=== PATIENT | female | born 1965 | race American Indian/Alaskan Native ===

== ENCOUNTER 2016-12-15 11:20 | Inpatient (IN) | payer OTHER ==
--- NOTE | 2016-12-15 11:15 | History and Physical Report ---
History of Present Illness Date of examination: 12/15/16 Chief complaint: Symptomatic fibroid uterus History of present illness: Pt is a 51yo BF LMP 12/04/16 presents for surgical evaluation and treatment of her fibroid uterus. She has had a uterine artery embolization several years ago followed by placement of the Mirena IUD in an attempt to control her bleeding from the fibroids, but now the bleeding is continuous and her uterus feels heavy due to an increase in size. Pelvic u/s showed an enlarged uterus 15.08 x 9.15 x 7.19cm with several fibroids and a displaced IUD within the myometrium. Both ovaries were normal. She therefore presents for a Robotic Assisted Total Hysterectomy with bilateral salpingectomy. She desires ovarian conservation. Past History Past Medical History: heart disease (Irregular heart beat 2 years ago), hypertension Past Surgical History: cholecystectomy, other (Uterine artery embolization; cardiac catherization) APPLIANCE FIXER History: fibroids Social history: no significant social history, Medications and Allergies Allergies Allergy/AdvReac Type Severity Reaction Status Date / Time No Known Allergies Allergy Verified 12/12/16 11:21 Home Medications Medication Instructions Recorded Confirmed Last Taken Type Atenolol [Atenolol] 50 mg PO DAILY 09/04/14 12/15/16 12/15/16 07:30 History Active Meds: Active Medications Celecoxib (Celebrex) 200 mg PO PREOP NR Stop: 12/15/16 23:59 Famotidine (Pepcid) 20 mg PO PREOP NR Stop: 12/15/16 23:59 Fentanyl (Sublimaze) 100 mcg IV ONCE NR Stop: 12/15/16 18:00 Gabapentin (Neurontin) 600 mg PO PREOP NR Stop: 12/15/16 18:00 Sodium Chloride (Nacl 0.9% 1000 Ml) 1,000 mls @ 100 mls/hr IV [facility] Midazolam HCl (Versed) 2 mg IV PREOP NR Stop: 12/15/16 23:59 Scopolamine (Transderm-Scop) 1 each TD PREOP NR Stop: 12/18/16 09:59 Review of Systems All systems: negative - Physical Exam Breasts: Positive: deferred Cardiovascular: Regular rate Lungs: Positive: Clear to auscultation Abdomen: Positive: normal appearance Genitourinary (Female): Positive: normal external genitalia Vagina: Positive: normal moisture Uterus: Positive: enlarged (14-16 weeks size) Extremities: Positive: normal Results All other labs normal. Ultrasound: report reviewed Assessment and Plan - Patient Problems (1) Fibroid, uterine Diagnosis Date: 12/15/16 Current Visit: Yes Status: Chronic Qualifiers: Uterine leiomyoma location: intramural Qualified Code(s): D25.1 - Intramural leiomyoma of uterus Plan to address problem: A: Symptomatic fibroid uterus P: Will proceed with a Robotic Assisted Total Hysterectomy with Bilateral Salpingectomy. Pt desires ovarian conservation
[~2016-12-15 11:20] MED LIST: NACL 0.9% 1000 ML 1,000 ML IV SCH; NEURONTIN PO NR; PEPCID PO NR; SUBLIMAZE IV NR; TRANSDERM-SCOP TD NR; VERSED IV NR; XYLOCAINE MPF 2% ONE; ZEMURON IV ONE
[2016-12-15] MEDS ORDERED: ANCEF/STERILE WATER 2 GM/20 ML 20 ML IV SCH (12:00)
--- NOTE | 2016-12-15 12:00 | Anesthesia Consultation ---
Anesthesia Consult and Med Hx Date of service: 12/15/16 - Airway Anesthetic Teeth Evaluation: Good ROM Head & Neck: Adequate Mental/Hyoid Distance: Adequate Mallampati Class: Class II Intubation Access Assessment: Probably Good - Pulmonary Exam CTA: Yes - Cardiac Exam Cardiac Exam: RRR - Pre-Operative Health Status ASA Pre-Surgery Classification: ASA2 Proposed Anesthetic Plan: General Nerve Block: TAP - Pulmonary Hx Smoking: No Hx Sleep Apnea: No - Cardiovascular System Hx Hypertension: Yes ("borderline" x 2 yrs) - Central Nervous System Hx Psychiatric Problems: No - Hematic Hx Anemia: Yes (past hx) - Other Systems Hx Alcohol Use: Yes (occas) Hx Cancer: No
--- NOTE | 2016-12-15 12:00 | Anesthesia Day of Surgery ---
Anesthesia Day of Surgery - Day of Surgery Patient Examined: Yes Patient H&P Reviewed: Yes Patient is NPO: Yes Beta Blockers: Yes
[2016-12-15] MEDS ORDERED: XYLOCAINE 1% 20 mL ONE (12:15)
[2016-12-15] MEDS ORDERED: DECADRON ONE ×2 (12:15→15:19)
[2016-12-15] MEDS ORDERED: MARCAINE-EPI/PF 0.5%-1:200,000 INFILTRATI ONE (12:15)
[2016-12-15] MEDS ORDERED: MARCAINE-EPI 0.5%-1:200,000 INFILTRATI ONE (12:15)
[2016-12-15] MEDS ORDERED: DIPRIVAN 10 MG/ML IV ONE (12:41)
[2016-12-15] MEDS ORDERED: DILAUDID ONE ×2 (12:42→16:55)
--- NOTE | 2016-12-15 12:51 | Admit Criteria Form ---
Admission Criteria Documentation: AMBULATORY SURGERY EXCEPTION CRITERIA Ambulatory Surgery Exception Criteria ( Place 'X' for any and all applicable criteria): Surgery or procedure performed on ambulatory basis may require inpatient stay for[A] ANY ONE of the following(1)(2)(3)(4)(5)(6)(7)(8)(9): X[X] I. A preoperative situation, condition, or finding that warrants inpatient stay as indicated by ANY ONE of the following: [] a) Inpatient care needed because of severity of a disease or condition rather than the surgery (eg, severe cardiac or respiratory disease, severe infection) (15) (16 ) (17) (18) [] b) Emergent procedure (eg, angioplasty for acute ischemia)(19) [X] c) Complex surgical approach or situation as indicated by ANY ONE of the following(3): [] i) Open approach needed instead of usual endoscopic, transcatheter, or other less invasive procedure [] ii) Difficult approach because of previous operation [] iii) Airway monitoring required after open neck procedures(20)(21) [X] iv) Large mass requiring unusually extensive dissection [] v) Additional complicating feature requiring inpatient care (eg, drain management)(22(23): [] d) Major surgery in a pt with high anesthetic risk as indicated by ANY ONE of the following (2)(3)(5)(7)(8): [] i) ASA risk class III or higher (severe systemic disease impairing function) [D] [] ii) Advanced age (eg, older than 85 years)(14)(24) [] iii) Symptomatic heart failure(25) [] iv) Symptomatic asthma or COPD(8)(21) [] v) Morbid obesity with hemodynamic or respiratory problems(20)( 21)(26)(27) [] vi) Obstructive sleep apnea(20)(21) [] vii) Former premature infants who are younger than 60 weeks [] viii) High risk for severe postoperative abnormalities (eg, severe postoperative hypocalcemia after parathyroidectomy for severe hyperparathyroidism)(27)( 28) [] ix) Unstable angina(25) [] e) Drug-related risk requiring inpatient stay as indicated by ANY ONE of the following(5)(10)(14)(32)(33) [] i) Procedure requires discontinuing drugs or other therapy (eg , antiarrhythmic medication, antiseizure medication), which necessitates inpatient observation or treatment.(18)(31) [] ii) Major surgery and high risk drug use as indicated by ANY ONE of the following: [] 1) Active abuse of cocaine or similar drug [] 2) Monoamine oxidase inhibitor use [] 3) Other drug identified as posing risk [] f) Inadequate outpatient care situation as indicated by ANY ONE of the following(5)(10)(14)(32)(33) [] i) Patient lives remote from medical facility and procedure has urgent complication potential, and temporary nearby residence cannot be arranged [] ii) Patient will have postprocedure incapacitation and inadequate assistance at home, or alternative level of care cannot be arranged. [] iii) Patient will have long general anesthesia or procedure side effect resolution time, and competent person to stay with patient on first postoperative night at home or alternative level of care cannot be arranged. []iv) Other inadequate outpatient situation that cannot be handled by other means [] II. A perioperative event, condition, or finding that warrants inpatient stay as indicated by ANY ONE of the following (1)(2)(3): [] a) Inadequate physiologic recovery: cardiovascular, respiratory, or hemodynamic status not normal or near preoperative baseline(18) [] b) Hemodynamic instability [] c) Patient not alert with near normal or baseline mental status [] d) Temperature not normal or as expected and not appropriate for outpatient treatment of condition [] e) Ambulatory or appropriate activity level status not yet achieved post procedure [E](34)(35)(36) [] f) Operative site not appropriate (eg, unexpected or excessive drainage or bleeding) [] g) Postoperative effects not resolved or adequately managed (eg, significant pain or vomiting not appropriate for outpatient or next level of care)(10)(12) [] h) Complicating features requiring inpatient care as indicated by ANY ONE of the following(37): [] i) Severe complications of procedure (eg, bowel injury, airway compromise, vascular injury,severe hemorrhage) [] ii) Extensive (eg, dissection far beyond usual scope of procedure ) or prolonged (eg, 120 minutes beyond usual) surgery needed requiring inpatient postoperative care [] iii) Conversion to an open or complex procedure that requires inpatient care (eg, open vs laparoscopic cholecystectomy, abdominal vs vaginal hysterectomy)(38) [] iv) Comorbid condition or test result identified during or post procedure that requires inpatient care (7) [] v) Malignant hyperthermia(30) [] vi) Other complicating feature requiring inpatient care(22)(23) Inpatient stay may be needed until ALL of the following are present (1)(2)(3)(4) (5)(6)(10)(14)(33)(40): []a) Physiologic recovery: cardiovascular, respiratory, and hemodynamic status normal or near preoperative baseline []b) Hemodynamic stability []c) Patient alert, with near normal or baseline mental status []d) Temperature appropriate: patient afebrile or temperature appropriate for outpt treatment of condition []e) Activity level appropriate: ambulatory or appropriate activity level post procedure []f) Operative site appropriate as indicated by ALL of the following: []i) Site dry or with expected drainage []ii) Any blood noted is as expected for procedure. []g) Postoperative effects resolved or managed as indicated by ALL of the following: []i) Pain management appropriate for outpatient (or next level of) care(10) []ii) Minimal nausea and vomiting: if present, successfully treated with oral medication(12) []iii) Headache, dizziness, or drowsiness (if present) are mild. []h) Voiding status acceptable as indicated by ANY ONE of the following: []i) Voiding spontaneously []ii) No voiding but instructions given for follow-up in 6 to 8 hours []iii) Urinary catheter in place, and instructions given for follow-up []i) Complicating features requiring inpatient care manageable at a lower level of care(37) []j) Comorbid conditions manageable at a lower level of care(37) The original [facility] content created by [facility] has been revised. The portions of the content which have been revised are identified through the use of italic text or in bold, and [facility] has neither reviewed nor approved the modified material. All other unmodified content is copyright [facility]. Please see references footnoted in the original [facility] edition 2016 Admission Criteria Met: Yes
[2016-12-15] MEDS ORDERED: NEO SYNEPHRINE/NS Syringe(OR USE) IV ONE (13:21)
[2016-12-15] MEDS ORDERED: LOPRESSOR IV ONE (13:21)
[2016-12-15] MEDS ORDERED: NACL 0.9% 1000 ML 1,000 ML ONE ×2 (13:45→15:32)
[2016-12-15] MEDS ORDERED: NACL 0.9% IR ONE ×2 (14:25)
[2016-12-15] MEDS ORDERED: NEOSPORIN GU IR ONE (14:25)
[2016-12-15] MEDS ORDERED: ZOFRAN ONE (14:29)
[2016-12-15] MEDS ORDERED: TORADOL ONE (14:29)
[2016-12-15] MEDS ORDERED: ROBINUL ONE ×2 (14:29→15:22)
[2016-12-15] MEDS ORDERED: BLOXIVERZ ONE (14:29)
--- NOTE | 2016-12-15 15:48 | Operative Report ---
Operative Report Operative Report: Date of procedure: 12/15/2016 Pre-operative diagnosis: Symptomatic fibroid uterus Post-operative diagnosis: Same Procedure name(s): 1. Robotic-assisted total hysterectomy 2. Bilateral salpingectomy Surgeon: Fuentes Mehta MD Disk Recoater: Carla Vera SA Anesthesia: Edgar block followed by general endotracheal intubation by Dr. Caesar Figueroa EBL: 100 mL's Findings: A 14-16 week size multi-myomatous uterus with a large cervical fibroid. Normal tubes bilaterally. A cystic left ovary and normal right ovary. Procedure: After the patient's first correctly identified she was prepped and draped in the usual sterile fashion and placed in the dorsolithotomy position. The bladder was first catheterized using Brooks catheter and the speculum was placed in the vagina and the anterior lip of the cervix was grasped using a single-tooth tenaculum, and the medium Vesicare cup was placed. The tenaculum and speculum was then removed from the vagina and attention was then turned to the abdomen. The skin knife was used to make a small incision approximately 5 cm above the umbilicus through which a 12 mm trocar was placed under direct visualization. After adequate amount of abdominal insufflation visualization of the pelvic organs found the uterus to be enlarged with several fibroids, the tubes were found to be normal bilaterally. The left ovary was enlarged and cystic and the right ovary was normal. A right lateral incision was made through which a 5 mm trocar was placed under direct visualization. A right and left paramedian incision was made through which the 8 mm trochars were placed under direct visualization. The patient was then placed in steep Trendelenburg positioning and the robot was docked on the patient's left side. After all the robotic ports were connected and adequate functioning of the robotic arms were tested the surgeon then proceeded to the console to begin the hysterectomy. First the left round ligament was grasped, cauterized and cut, the left utero- ovarian ligaments were grasped, cauterized and cut, and the left fallopian tube also grasped, cauterized and cut along the mesosalpinx thus freeing the left ovary from the left uterine sidewall. The cystic left ovary was sized and drained of clear fluid. The same procedure was performed on the right. The right round ligament was grasped, cauterized and cut, the right utero-ovarian ligaments were grasped, cauterized and cut, and the right fallopian tube also grasped, cauterized and cut along the mesosalpinx thus freeing the right ovary from the right uterine sidewall. The bladder flap was taken down anteriorly and the uterine vessels were grasped, cauterized and cut bilaterally. The cardinal ligaments were sequentially grasped, cauterized and cut down to the level of the uterosacral ligaments. At this time the posterior colpotomy was performed over the Vcare cup, and the cervix was circumscribed beginning posteriorly and meeting anteriorly until the cervix was freed. The cervix and uterus was then removed through the vagina and sent to pathology. The vaginal cuff was then closed using 2-0 Vloc suture in a running fashion. Irrigation was then performed and after good hemostasis was achieved the procedure was considered complete. The Tisseel sealant was then sprayed across the vaginal cuff site, and after excellent hemostasis was assured Interceed was placed across the vaginal cuff site. All instruments were then removed from the abdominal cavity. And each incision was closed using 0 Vicryl suture in a [id number] configuration on the fascia followed by 4-0 Monocryl suture in a subcuticular fashion on the skin. Each incision was also infiltrated using 0.5% Marcaine solution. The vaginal pack was removed. The patient tolerated the procedure well and was transported to the recovery room in stable condition.
[2016-12-15] MEDS ORDERED: ZOFRAN IV PRN (15:49)
[2016-12-15] MEDS ORDERED: DULCOLAX PR PRN (15:49)
[2016-12-15] MEDS ORDERED: NARCAN 0.4 MG/1 ML IV PRN (15:49)
[2016-12-15] MEDS ORDERED: MILK OF MAGNESIA PO PRN (15:49)
[2016-12-15] MEDS ORDERED: TYLENOL PO PRN (15:49)
[2016-12-15] MEDS ORDERED: PERCOCET 5/325 PO PRN (15:49)
[2016-12-15] MEDS ORDERED: NORCO 5/325 PO PRN (15:49)
[2016-12-15] MEDS ORDERED: D5LR 1,000 ML IV SCH (16:00)
[2016-12-15] MEDS ORDERED: APRESOLINE ONE ×2 (16:20→17:19)
[2016-12-15] MEDS ORDERED: REGLAN IV PRN ×2 (16:47→17:30)
[2016-12-15] MEDS: DILAUDID IV PRN ×2 (16:55→17:25)
[2016-12-15] MEDS ORDERED: APRESOLINE IV PRN (17:28)
[2016-12-15] MEDS: TORADOL IV SCH (20:39)
[2016-12-15] MEDS ORDERED: COLACE PO SCH (22:00)
[2016-12-15] MEDS: ANCEF/NS 1 GM/50 ML 50 ML IV SCH (22:00)
[2016-12-16] MEDS: TORADOL IV SCH ×2 (02:46→09:15)
[2016-12-16] MEDS: ANCEF/NS 1 GM/50 ML 50 ML IV SCH (05:56)
[2016-12-16 06:28] LABS: Hematocrit 39.1 % (30.3-42.9); Hemoglobin 12.6 gm/dl (10.1-14.3)
--- NOTE | 2016-12-16 11:05 | Progress Note ---
Assessment and Plan - Patient Problems (1) Fibroid, uterine Diagnosis Date: 12/15/16 Current Visit: Yes Status: Resolved Qualifiers: Uterine leiomyoma location: intramural Qualified Code(s): D25.1 - Intramural leiomyoma of uterus (2) Status post robot-assisted surgical procedure Diagnosis Date: 12/16/16 Current Visit: Yes Status: Acute Plan to address problem: A: S/P RATH with bilateral salpingectomy - POD #1 Doing well P: May go home today Subjective - Subjective Date of service: 12/16/16 Principal diagnosis: S/P RATH - POD #1 Interval history: Pt is s/p a Robotic Assisted Total Hysterectomy with bilateral salpingectomy and feeling well. She is tolerating a liquid diet without nausea or vomiting, ambulating and voiding without difficulty. Patient reports: appetite normal, voiding normally, pain well controlled, ambulating normally, no flatus Objective - Vital Signs Latest vital signs: Vital Signs Temp Pulse Pulse Pulse Resp BP BP 12/16/16 09:02 98.8 F 76 20 12/16/16 04:25 99.5 F 80 16 119/74 12/16/16 02:46 18 12/16/16 00:00 98 F 60 20 114/85 12/15/16 20:39 18 12/15/16 20:00 98.2 F 95 H 20 149/81 12/15/16 19:45 18 12/15/16 18:30 98.0 F 78 18 143/75 12/15/16 18:00 98.4 F 89 14 125/74 12/15/16 17:50 89 13 123/74 12/15/16 17:45 80 13 143/79 12/15/16 17:35 80 14 150/82 12/15/16 17:30 80 13 163/89 12/15/16 17:22 62 181/96 12/15/16 17:15 62 14 180/94 12/15/16 17:00 65 14 181/96 12/15/16 16:45 63 14 173/94 12/15/16 16:30 60 14 152/89 12/15/16 16:25 54 L 12 175/90 12/15/16 16:20 58 L 12 203/109 12/15/16 16:16 97.6 F 69 12 210/108 12/15/16 13:00 67 16 144/77 01/20/17 12:55 69 16 141/89 12/15/16 11:45 98.5 F 70 18 135/89 Pulse Ox 12/16/16 09:02 12/16/16 04:25 12/16/16 02:46 12/16/16 00:00 12/15/16 20:39 12/15/16 20:00 12/15/16 19:45 12/15/16 18:30 12/15/16 18:00 100 12/15/16 17:50 100 12/15/16 17:45 100 12/15/16 17:35 100 12/15/16 17:30 100 12/15/16 17:22 12/15/16 17:15 100 12/15/16 17:00 100 12/15/16 16:45 12/15/16 16:30 12/15/16 16:25 100 12/15/16 16:20 100 12/15/16 16:16 100 12/15/16 13:00 12/15/16 12:55 12/15/16 11:45 100 Intake and Output 12/15/16 12/16/16 12/16/16 22:59 06:59 14:59 Intake Total 1850 240 240 Output Total 2050 700 Balance -200 -460 240 Intake: IV 1850 D5lr 1,000 ml @ 125 mls/ 250 hr IV [facility] Rx#: [id number] Oral 240 240 Output: Urine 2050 700 Void 700 Other: Total, Intake Amount 240 240 Total, Output Amount 700 Voiding Method Indwelling Catheter Toilet Weight 76.204 kg - Exam Cardiovascular: Present: Regular rate Lungs: Present: Clear to auscultation Abdomen: Present: normal appearance, soft Extremities: Present: normal Incision: Present: normal, dry, intact - Labs Labs: Laboratory Tests 12/15/16 12/16/16 13:15 05:46 Hgb 12.6 Hct 39.1 Blood Type A NEGATIVE Antibody Screen Negative
--- NOTE | 2016-12-16 11:12 | Discharge Summary ---
Providers - Providers Date of Admission: 12/15/16 15:49 Date of discharge: 12/16/16 Attending physician: TRAE PEREA Primary care physician: JOSEPH OVERTON Hospitalization Reason for admission: other (Symptomatic fibroid uterus) Procedure: other (Robotic Assisted Total Hysterectomy with Bilateral salpingectomy) Incision: normal, dry, intact Other procedures: none complications: none Discharge diagnosis: other (S/P RATH) Hospital course: Pt is a 51yo BF LMP 12/04/16 who presented for surgical evaluation and treatment of her fibroid uterus. She had had a uterine artery embolization several years ago followed by placement of the Mirena IUD in an attempt to control her bleeding from the fibroids, but the bleeding has been continuous and her uterus feels heavy due to an increase in size. Pelvic u/s showed an enlarged uterus 15.08 x 9.15 x 7.19cm with several fibroids and a displaced IUD within the myometrium. Both ovaries were normal. She therefore underwent a Robotic Assisted Total Hysterectomy with bilateral salpingectomy, and tolerated the procedure well. Post operative course was unremarkable, and by POD #1 she was tolerating a liquid diet without nausea or vomiting, ambulating and voiding without difficulty. She was therefore discharged to home on POD #1 in stable condition. Condition at discharge: Good Disposition: DISCHARGED TO HOME OR SELFCARE - Discharge Diagnoses (1) Fibroid, uterine Status: Resolved Qualifiers: Uterine leiomyoma location: intramural Qualified Code(s): D25.1 - Intramural leiomyoma of uterus (2) Status post robot-assisted surgical procedure Status: Resolved Plan - Discharge Medications Prescriptions: HYDROcodone/APAP 5-325 [Haskell 5-325 mg TAB] 1 each PO Q6HR PRN #30 tablet PRN Reason: Pain, Moderate (4-6) Ibuprofen [Motrin] 800 mg PO Q8HR PRN #30 tablet PRN Reason: Moder Pain Unrelieved By Haskell - Provider Discharge Summary Activity: routine, no sex for 6 weeks, no heavy lifting 4 weeks, no strenuous exercise Diet: routine Instructions: routine Additional instructions: [] Smoking cessation referral if applicable(refer to patient education folder for contact #) [] Refer to [facility] Booklet Call your doctor immediately for: * Fever > 100.5 * Heavy vaginal bleeding ( >1 pad per hour) * Severe persistent headache * Shortness of breath * Reddened, hot, painful area to leg or breast * Drainage or odor from incision. * Keep incision clean and dry at all times and follow doctor's instructions regarding bathing/showering - Follow up plan Follow up: JOSEPH OVERTON MD [Primary Care Provider] - 7 Days TRAE PEREA MD [Staff Physician] - 14 Days
[2016-12-16 17:18] VITALS: BP 116/70
== END 2016-12-16 15:30 | disposition home or self-care (01) | DRG 743 ==
LOC: OR 11:20 → OB 15:49
PROVIDERS: ADMIT Obstetrics & Gynecology; ATTEND Obstetrics & Gynecology
PROC: 0UT94ZZ Resection of Uterus, Percutaneous Endoscopic Approach (ICD-10-PCS; principal; 2016-12-15)
PROC: 0UTC4ZZ Resection of Cervix, Percutaneous Endoscopic Approach (ICD-10-PCS; 2016-12-15)
PROC: 0UB74ZZ Excision of Bilateral Fallopian Tubes, Percutaneous Endoscopic Approach (ICD-10-PCS; 2016-12-15)
PROC: 8E0W4CZ Robotic Assisted Procedure of Trunk Region, Percutaneous Endoscopic Approach (ICD-10-PCS; 2016-12-15)
DX: D25.1 Intramural leiomyoma of uterus (principal); Z98.890 Other specified postprocedural states; I10 Essential (primary) hypertension; Z90.49 Acquired absence of other specified parts of digestive tract
CPT/HCPCS: 36415; 64450; 85014; 85018; 86850; 86900; 86901; 88307; A4217; C1765; C9250; J0360; J0690; J1100; J1170; J1885; J2250; J2370; J2405; J2704; J2710; J2765; J3010; J7030; J7121

== ENCOUNTER 2016-12-29 16:42 | Inpatient (IN) | payer OTHER ==
[2016-12-29 18:05] LABS: Hematocrit 31.3 % (30.3-42.9); Hemoglobin 9.9 gm/dl (10.1-14.3); Mean Corpuscular HGB Conc 32 % (30-34); Mean Corpuscular Volume 81 fl (79-97); Platelet Count 383 K/mm3 (140-440); Red Blood Count 3.84 M/mm3 (3.65-5.03); Red Cell Distribution Width 16.2 % (13.2-15.2); White Blood Count 19.8 K/mm3 (4.5-11.0)
[2016-12-29 18:08] LABS: Mean Corpuscular Hemoglobin 26 pg (28-32)
[2016-12-29 19:10] LABS: Blood Urea Nitrogen 9 mg/dL (7-17); Calcium 8.5 mg/dL (8.4-10.2); Carbon Dioxide 28 mmol/L (22-30); Chloride 96.2 mmol/L (98-107); Glucose 120 mg/dL (65-100); Potassium 3.6 mmol/L (3.6-5.0); Sodium 138 mmol/L (137-145)
[2016-12-29 19:16] LABS: Anion Gap 17 mmol/L
[2016-12-29] MEDS ORDERED: NACL 0.9% 1000 ML IV ONE (22:06)
[2016-12-29] MEDS ORDERED: NACL ONE (22:08)
--- NOTE | 2016-12-29 22:09 | Emergency Department Report ---
ED Female HPI - General Chief complaint: Urogenital-Female Stated complaint: ABD DISCOMFORT/VAG DISCHARGE POST SURGERY Time Seen by Provider: 12/29/16 21:51 Source: patient Mode of arrival: Ambulatory Limitations: No Limitations - History of Present Illness Initial comments: This is a pleasant 51-year-old female who reports vaginal discharge starting this afternoon. She is status post robotics hysterectomy due to fibroids. This was done on December 15. She reports having some dysuria symptoms starting Sunday. She called her physician and had Bactrim prescription called in. She states that she still having some dysuria discomfort. She actually had a wound check today with her surgeon. Just after leaving the office she noted feeling wet and noted she had a moderate amount of discharge from the vaginal region. This has persisted and fairly moderate amount. She reports if smelling quite foul as well. Patient denies any fevers she denies any abdominal pain as well reports a normal appetite. MD Complaint: vaginal discharge Onset/Timin -: Sudden, hour(s) Radiation: non-radiating Severity: mild Quality: dull Consistency: constant Improves with: none Worsens with: urination Are you Now?: No Associated Symptoms: vaginal discharge, dysuria. denies: vaginal bleeding, abdominal pain, headaches - Related Data Home Medications Medication Instructions Recorded Confirmed Last Taken Atenolol [Atenolol] 50 mg PO DAILY 09/04/14 12/15/16 12/15/16 07:30 Previous Rx's Medication Instructions Recorded Last Taken Type HYDROcodone/APAP 5-325 [[place] 1 each PO Q6HR PRN #30 tablet 12/16/16 Unknown Rx 5-325 mg TAB] Ibuprofen [Motrin] 800 mg PO Q8HR PRN #30 tablet 12/16/16 Unknown Rx Allergies Allergy/AdvReac Type Severity Reaction Status Date / Time No Known Allergies Allergy Verified 12/12/16 11:21 ED Review of Systems ROS: Stated complaint: ABD DISCOMFORT/VAG DISCHARGE POST SURGERY Other details as noted in HPI Constitutional: denies: chills, fever Eyes: denies: eye pain, eye discharge, vision change ENT: denies: ear pain, throat pain Respiratory: denies: cough, shortness of breath, wheezing Cardiovascular: denies: chest pain, palpitations Endocrine: no symptoms reported Gastrointestinal: denies: abdominal pain, nausea, diarrhea Genitourinary: urgency, dysuria, discharge Musculoskeletal: denies: back pain, joint swelling, arthralgia Skin: denies: rash, lesions Neurological: denies: headache, weakness, paresthesias Psychiatric: denies: anxiety, depression Hematological/Lymphatic: denies: easy bleeding, easy bruising ED Past Medical Hx - Past Medical History Previous Medical History?: Yes Hx Hypertension: Yes ("borderline" x 2 yrs) Hx Congestive Heart Failure: No Hx Diabetes: No Hx GERD: Yes Hx Asthma: No Hx COPD: No Hx HIV: No - Surgical History Past Surgical History?: Yes Hx Cholecystectomy: Yes Hx Breast Surgery: Yes (lt breast node removed) Additional Surgical History: hysterectomy - Social History Smoking Status: Never Smoker Substance Use Type: Alcohol - Medications Home Medications: Home Medications Medication Instructions Recorded Confirmed Last Taken Type Atenolol [Atenolol] 50 mg PO DAILY 09/04/14 12/15/16 12/15/16 07:30 History HYDROcodone/APAP 5-325 [[place] 1 each PO Q6HR PRN #30 tablet 12/16/16 Unknown Rx 5-325 mg TAB] Ibuprofen [Motrin] 800 mg PO Q8HR PRN #30 tablet 12/16/16 Unknown Rx ED Physical Exam - General Limitations: No Limitations General appearance: alert, in no apparent distress - Head Head exam: Present: atraumatic, normocephalic - Eye Eye exam: Present: normal appearance - ENT ENT exam: Present: mucous membranes moist - Neck Neck exam: Present: normal inspection - Respiratory Respiratory exam: Present: normal lung sounds bilaterally. Absent: respiratory distress - Cardiovascular Cardiovascular Exam: Present: regular rate, normal rhythm. Absent: systolic murmur, diastolic murmur, rubs, gallop - GI/Abdominal GI/Abdominal exam: Present: soft, normal bowel sounds - Speculum exam: Present: other (whitish yellowish semi-thick discharge noted a moderate amount in the vaginal region as well as in the vaginal vault. Cuff appears to be intact. An well-healed in general. No LOC no active fluid noted coming from the cuff region. There is a moderate amount of fluid in the vault in general though. No tenderness to palpation no fullness noted on bimanual examination.) - Extremities Exam Extremities exam: Present: normal inspection - Back Exam Back exam: Present: normal inspection - Neurological Exam Neurological exam: Present: alert, oriented X3 - Psychiatric Psychiatric exam: Present: normal affect, normal mood - Skin Skin exam: Present: warm, dry, intact, normal color. Absent: rash ED Course Vital Signs 12/29/16 17:00 Temperature 98.1 F Pulse Rate 102 H Respiratory 16 Rate Blood Pressure 124/82 O2 Sat by Pulse 100 Oximetry - Reevaluation(s) Reevaluation #1: 12/30/16 00:03 Patient given IV fluids due to the IV contrasted CT study. She is totally pain- free here and very comfortable. Urinalysis does demonstrate some significant pyuria. In addition CT study has some findings described and MDM. I did discuss with Dr. Mehta these findings. He will admit the patient for CT-guided I drainage. He will put in orders and informed of findings and plan. ED Medical Decision Making - Lab Data Result diagrams: 12/29/16 17:40 12/29/16 17:40 - Radiology Data Radiology results: report reviewed, image reviewed interpreted by me: Impression and CT demonstrates there has been a hysterectomy. There is a loculated collection of air and fluid in the pelvis measuring 7.3 x 4 x 4.3 cm. This is consistent with an abscess. Possibility of bowel fistula not excluded. Critical care attestation.: If time is entered above; I have spent that time in minutes in the direct care of this critically ill patient, excluding procedure time. ED Disposition Clinical Impression: Abscess of pelvis, Pyuria Disposition: OP ADMITTED IP TO THIS HOSP Is pt being admited?: Yes Does the pt Need Aspirin: No Condition: Stable Referrals: TRAE MEHTA MD [Primary Care Provider] - 3-5 Days Time of Disposition: 00:01
--- NOTE | 2016-12-29 23:32 | Cat Scan Report ---
FINAL REPORT PROCEDURE: CT ABDOMEN PELVIS W CON TECHNIQUE: Computerized axial tomography of the abdomen and pelvis was performed after the IV injection of iodinated nonionic contrast. HISTORY: 2 weeks s/p hysterectomy with vaginal discharge COMPARISON: No prior studies are available for comparison. FINDINGS: Visualized lower thorax: No significant abnormality. Liver: Normal size and attenuation. Spleen: Normal size and attenuation. Gallbladder and biliary system: There has been a cholecystectomy. The bile ducts are dilated. There is no choledocholithiasis.. Pancreas: Normal. Adrenals: Normal. Kidneys: Normal. GI tract: There is no bowel obstruction, colitis or enteritis. The appendix is normal.. Lymph nodes and mesentery: Normal. 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 Bladder: Normal. Reproductive organs: There has been a hysterectomy. There is a loculated collection of air and fluid in the pelvis measuring 7.3 x 4 x 4.3 centimeters. This is consistent with an abscess. Possibility of bowel fistula not excluded.. Peritoneum: There is no ascites or free air. There is induration of the pelvic mesentery indicating peritonitis.. Musculoskeletal structures: No significant abnormality. Other: None. IMPRESSION: There has been a hysterectomy. There is a loculated collection of air and fluid in the pelvis measuring 7.3 x 4 x 4.3 centimeters. This is consistent with an abscess. Possibility of bowel fistula not excluded.. There is no ascites or free air. There is induration of the pelvic mesentery indicating peritonitis.. There has been a cholecystectomy. The bile ducts are dilated. There is no choledocholithiasis.. 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
[2016-12-29 23:40] LABS: Bacteria,Urine 2+ /HPF (Negative); Bilirubin,Urine NEG (Negative); Blood,Urine SM (Negative); Ketones,Urine NEG (Negative); Leukocyte Esterase,Urine MOD (Negative); Mucus,Urine 1+ /HPF; Nitrite,Urine POS (Negative); Protein,Urine >500 mg/dL (Negative)
[2016-12-29 23:41] LABS: WBC,Urine > 182.0 /HPF (0.0-6.0)
--- NOTE | 2016-12-30 00:09 | History and Physical Report ---
<ELIAZARTRAE B - Last Filed: 12/30/16 00:15> History of Present Illness Date of examination: 12/30/16 Chief complaint: Leaking fluid from the vagina History of present illness: Pt is a 51yo BF S/P RATH 12/15/16 presents to [facility] ER complaining of leaking copious amounts of fluid from the vagina since this afternoon. CT Scan shows a loculated collection of air and fluid in the pelvis 7.3 x 4 x 4.3cm consistent with a pelvic abscess. WBC 19.8; H/H - 9.9/31.3 Past History Past Medical History: arrhythmia (2years ago), heart disease, hypertension Past Surgical History: cholecystectomy, [employer]/uterine surgery (uterine artery embolization), other (Robotic Assisted Total Hysterectomy) [employer] History: fibroids Social history: no significant social history, Medications and Allergies Allergies Allergy/AdvReac Type Severity Reaction Status Date / Time No Known Allergies Allergy Verified 12/12/16 11:21 Home Medications Medication Instructions Recorded Confirmed Last Taken Type Atenolol [Atenolol] 50 mg PO DAILY 09/04/14 12/15/16 12/15/16 07:30 History HYDROcodone/APAP 5-325 [[place] 1 each PO Q6HR PRN #30 tablet 12/16/16 Unknown Rx 5-325 mg TAB] Ibuprofen [Motrin] 800 mg PO Q8HR PRN #30 tablet 12/16/16 Unknown Rx Review of Systems All systems: negative - Vital Signs Vital signs: Vital Signs Temp Pulse Resp BP Pulse Ox 98.1 F 102 H 16 124/82 100 12/29/16 17:00 12/29/16 17:00 12/29/16 17:00 12/29/16 17:00 12/29/16 17:00 Temp Pulse Resp BP Pulse Ox 98.1 F 91 H 18 140/90 98 12/29/16 17:00 12/30/16 00:02 12/30/16 00:02 12/30/16 00:02 12/30/16 00:02 - Physical Exam Breasts: Positive: deferred Cardiovascular: Regular rate Lungs: Positive: Clear to auscultation Abdomen: Positive: normal appearance, soft Genitourinary (Female): Positive: normal external genitalia Vagina: Positive: discharge Cervix: Positive: absent Uterus: Positive: absent Extremities: Positive: normal Results Result Diagrams: 12/29/16 17:40 12/29/16 17:40 Abnormal lab results 12/29/16 12/29/16 12/29/16 Range/Units 17:40 17:40 23:05 WBC 19.8 H (4.5-11.0) K/mm3 Hgb 9.9 L (10.1-14.3) gm/dl MCH 26 L (28-32) pg RDW 16.2 H (13.2-15.2) % Chloride 96.2 L (98-107) mmol/L Glucose 120 H (65-100) mg/dL Urine WBC (Auto) > 182.0 H (0.0-6.0) /HPF All other labs normal. CT scan - pelvis: report reviewed Assessment and Plan - Patient Problems (1) Abscess of pelvis Onset Date: 12/30/16 Current Visit: Yes Status: Acute Plan to address problem: A: Pelvic abscess S/P RATH P: Will admit for IV antibiotic Obtain an Interventional Radiology consultation for possible CT directed drainage of pelvic abscess <AJIT TORRES P - Last Filed: 12/30/16 02:39> History of Present Illness Date of admission: 12/30/16 00:19 Medications and Allergies Active Meds: Active Medications Acetaminophen (Tylenol) 650 mg PO Q4H PRN PRN Reason: Pain MILD(1-3)/Fever >100.5/GAN Docusate Sodium (Colace) 100 mg PO Q12H PRN PRN Reason: Constipation Ceftriaxone Sodium (Rocephin/Ns 1 Gm/50 Ml) 1 gm in 50 mls @ 100 mls/hr IV Q12H NAKUL PRN Reason: Protocol Last Admin: 12/30/16 02:13 Dose: 100 mls/hr Lactated Ringer's (Lactated Ringers) 1,000 mls @ 125 mls/hr IV DIRECT NAKUL Last Admin: 12/30/16 02:14 Dose: 125 mls/hr Ketorolac Tromethamine (Toradol) 30 mg IV Q8H NAKUL Stop: 01/04/17 00:59 Last Admin: 12/30/16 02:12 Dose: 30 mg Multivitamins/Iron/Calcium ( Vitamin) 1 each PO QDAY NAKUL Ondansetron HCl (Zofran) 4 mg IV Q6H PRN PRN Reason: Nausea And Vomiting - Vital Signs Vital signs: Vital Signs Temp Pulse Resp BP Pulse Ox 98.1 F 102 H 16 124/82 100 12/29/16 17:00 12/29/16 17:00 12/29/16 17:00 12/29/16 17:00 12/29/16 17:00 Temp Pulse Resp BP Pulse Ox 98.6 F 76 20 105/70 98 12/30/16 01:55 12/30/16 01:55 12/30/16 01:55 12/30/16 01:55 12/30/16 00:49 Results Result Diagrams: 12/29/16 17:40 12/29/16 17:40 All other labs normal.
[2016-12-30] MEDS ORDERED: COLACE PO PRN (00:19)
[2016-12-30] MEDS ORDERED: ZOFRAN IV PRN (00:19)
[2016-12-30] MEDS ORDERED: TYLENOL PO PRN (00:19)
[2016-12-30] MEDS ORDERED: ROCEPHIN/NS 1 GM/50 ML 1 GM/50 ML BAG IV ONE (01:24)
[2016-12-30] MEDS: TORADOL IV SCH ×4 (01:28→20:22)
[2016-12-30] MEDS: ROCEPHIN/NS 1 GM/50 ML 1 GM/50 ML BAG IV SCH ×2 (02:13→20:22)
[2016-12-30] MEDS: LACTATED RINGERS 1,000 ML IV SCH (02:14)
[2016-12-30 03:17] LABS: INR 1.13 (0.87-1.13)
[2016-12-30] MEDS ORDERED: SUBLIMAZE ONE ×2 (09:16→10:40)
[2016-12-30] MEDS ORDERED: VERSED ONE ×2 (09:42→10:40)
[2016-12-30] MEDS ORDERED: VERSED IV ONE ×2 (09:57→10:50)
[2016-12-30] MEDS ORDERED: SUBLIMAZE IV ONE ×2 (09:57→10:50)
--- NOTE | 2016-12-30 11:19 | Post Operative Note ---
Date of procedure: 12/30/16 Pre-op diagnosis: Pelvic abscess with some vaginal communication Post-op diagnosis: same Procedure: 8 Fr right transgluteal drain placement into a pelvic abscess Anesthesia: local (w/ conscious sedation) Surgeon: AUGIE GONZALES Estimated blood loss: minimal Specimen disposition: to lab (micro) Condition: stable Disposition: floor
[2016-12-30] MEDS ORDERED: ZOFRAN ONE (11:22)
[2016-12-30] MEDS ORDERED: NACL ONE (12:05)
--- NOTE | 2016-12-30 20:20 | Consultation ---
History of Present Illness - Reason for Consult Consult date: 12/30/16 pelvic abscess Requesting physician: AGGIE CLAYTON - History of Present Illness This is a pleasant 51 year old woman with hypertension and uterine fibroids. Patient underwent robotic assisted total hysterectomy on 12/15/16. She said she was having burining on urination that was thought to be a urinary tract infection, she was given bactrim on December 25. She took it for 4 days. On 12/29/16 she started to have foul smelling vaginal discharge that she described as purulent. She was brought into the hospital and a CT scan revealed 7.3 x 4 c 4.3 cm loculated collection in the pelvis. Dr. Alcantar performed IR drainage on 12/30 with the removal of 25 ml of purulent material. The transgluteal drain was left in place. Patient was started on ceftriaxone. Infectious disease was called to evaluate Past History Past Medical History: hypertension Past Surgical History: cholecystectomy, Other (right breast biopsy) Social history: no significant social history, . denies: alcohol abuse, IV drug use Medications and Allergies Allergies Allergy/AdvReac Type Severity Reaction Status Date / Time No Known Allergies Allergy Verified 12/12/16 11:21 Home Medications Medication Instructions Recorded Confirmed Last Taken Type Atenolol [Atenolol] 50 mg PO DAILY 09/04/14 12/30/16 12/15/16 09:00 History HYDROcodone/APAP 5-325 [[place] 1 each PO Q6HR PRN #30 tablet 12/16/16 12/30/16 09:00 Rx 5-325 mg TAB] Ibuprofen [Motrin] 800 mg PO Q8HR PRN #30 tablet 12/16/16 12/30/16 12/18/16 09: 00 Rx Active Meds: Active Medications Acetaminophen (Tylenol) 650 mg PO Q4H PRN PRN Reason: Pain MILD(1-3)/Fever >100.5/GAN Docusate Sodium (Colace) 100 mg PO Q12H PRN PRN Reason: Constipation Ceftriaxone Sodium (Rocephin/Ns 1 Gm/50 Ml) 1 gm in 50 mls @ 100 mls/hr IV Q12H NAKUL PRN Reason: Protocol Last Admin: 12/30/16 02:13 Dose: 100 mls/hr Lactated Ringer's (Lactated Ringers) 1,000 mls @ 125 mls/hr IV DIRECT [facility] Last Admin: 12/30/16 02:14 Dose: 125 mls/hr Ketorolac Tromethamine (Toradol) 30 mg IV Q8H [facility] Stop: 01/04/17 00:59 Last Admin: 12/30/16 09:07 Dose: 30 mg Multivitamins/Iron/Calcium ( Vitamin) 1 each PO QDAY [facility] Ondansetron HCl (Zofran) 4 mg IV Q6H PRN PRN Reason: Nausea And Vomiting Last Admin: 12/30/16 11:27 Dose: 4 mg Review of Systems Constitutional: no weight gain, no fever, no chills, no fatigue, no weakness, no malaise Ears, nose, mouth and throat: no ear pain, no ear discharge, no bleeding gums, no dental pain Breasts: deferred Cardiovascular: no chest pain, no orthopnea, no lightheadedness, no shortness of breath Respiratory: no cough with sputum, no excessive sputum, no wheezing, no pleurisy Gastrointestinal: no nausea, no vomiting, no diarrhea, no melena, no hematochezia Genitourinary Female: dysuria, vaginal discharge (foul odor) Menstruation: post hysterectomy Musculoskeletal: no neck pain, no morning stiffness, no muscle weakness Integumentary: no pruritis, no redness, no sores, no lesions, no darkening of skin, no acne Neurological: no parathesias, no migraines, no convulsions Physical Examination - Constitutional Vitals: Selected Entries 12/30/16 12/30/16 12:20 15:37 Temperature 97.4 F L 97.5 F L Pulse Rate [ 74 From Monitor] Respiratory 14 Rate Blood Pressure 111/74 [Left Arm] Blood Pressure 86 Mean [Left Arm] General appearance: Present: no acute distress, well-nourished - EENT Eyes: Present: PERRL, EOM intact. Absent: scleral icterus, conjunctival injection ENT: hearing intact, clear oral mucosa, no oropharyngeal erythema, no poor dentition - Neck Neck: Present: supple, normal ROM - Respiratory Respiratory effort: normal Respiratory: bilateral: CTA - Cardiovascular Rhythm: regular Heart Sounds: Present: S1 & S2 - Extremities Extremities: no ischemia, pulses intact, No edema - Abdominal General gastrointestinal: Present: soft, non-tender, normal bowel sounds Female genitourinary: Present: deferred - Rectal Rectal Exam: deferred - Integumentary Integumentary: Present: clear, warm. Absent: jaundice, rash, clammy - Musculoskeletal Musculoskeletal: strength equal bilaterally - Psychiatric Psychiatric: appropriate mood/affect, intact judgment & insight Results - Labs CBC & Chem 7: 12/29/16 17:40 12/29/16 17:40 Labs: Laboratory Tests 12/29/16 12/29/16 12/29/16 17:40 17:40 23:05 WBC 19.8 H Creatinine 0.9 Glucose 120 H Urine WBC (Auto) > 182.0 H Assessment and Plan Antibiotics: Ceftriaxone 1gm ivQ24H (12/30 This is a pleasant 51 year old woman with hypertension who is s/p robotic assisted total hysterectomy on 12/15/16. She is presented on 12/29/16 with vaginal drainage of foul smelling purulent material. CT scan revealed 7 .3 x 4 x4.3 loculated collection in the pelvis s/p drainage of 25 ml of purulent material with right transgluteal drain in place. 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
[2016-12-30] MEDS ORDERED: VANCOMYCIN PHARMACY TO DOSE IV SCH (22:00)
[2016-12-30] MEDS: VANCOMYCIN VIAL 1,250 MG in NACL 0.9% 250ML 250 ML IV SCH (22:50)
[2016-12-31] MEDS: UNASYN/NS 3 GM/100 ML 3 GM/100 ML BAG IV SCH ×4 (00:48→21:15)
[2016-12-31] MEDS: LACTATED RINGERS 1,000 ML IV SCH ×2 (03:17→17:17)
[2016-12-31] MEDS: TORADOL IV SCH ×2 (03:43→21:16)
[2016-12-31 09:05] LABS: Hematocrit 31.6 % (30.3-42.9); Hemoglobin 10.2 gm/dl (10.1-14.3); Mean Corpuscular HGB Conc 32 % (30-34); Mean Corpuscular Hemoglobin 26 pg (28-32); Mean Corpuscular Volume 81 fl (79-97); Platelet Count 463 K/mm3 (140-440); Red Cell Distribution Width 16.4 % (13.2-15.2); White Blood Count 10.3 K/mm3 (4.5-11.0)
[2016-12-31] MEDS: PRENATAL VITAMIN PO SCH (09:55)
[2016-12-31] MEDS: VANCOMYCIN VIAL 1,250 MG in NACL 0.9% 250ML 250 ML IV SCH ×2 (09:56→22:35)
[2016-12-31 11:24] LABS: Anisocytosis 1+; Basophils % (Manual) 0 % (0.0-1.8); Blastocytes % (Manual) 0 %; Diff Status Complete; Platelet Estimate Consistent w Auto
--- NOTE | 2016-12-31 12:28 | Progress Note ---
Assessment and Plan - Patient Problems (1) Abscess of pelvis Onset Date: 12/30/16 Current Visit: Yes Status: Acute Plan to address problem: A: Pelvic abscess - improving s/p CT guided drainage - currently on Unasyn and Vancomycin UTI - improved with antibiotics Leukocytosis - resolving P: Continue with IV antibiotics as per ID Appreciate ID input Subjective - Subjective Date of service: 12/31/16 Principal diagnosis: Pelvic abscess - s/p drainage - POD #1 Interval history: Pt is feeling much better today, denies further vaginal discharge. ~ 20mls of drainage from JACOBO Patient reports: appetite normal, voiding normally, pain well controlled, flatus , ambulating normally Objective - Vital Signs Latest vital signs: Vital Signs Temp Pulse Resp BP BP 12/31/16 09:03 97.8 F 80 16 112/67 12/31/16 04:29 98.6 F 77 18 149/84 12/30/16 23:20 97.9 F 76 20 126/81 12/30/16 19:40 97.5 F L 80 20 133/74 12/30/16 15:37 97.5 F L 74 14 111/74 Intake and Output 12/30/16 12/31/16 12/31/16 22:59 06:59 14:59 Intake Total 2017 1555 480 Output Total 340 618 700 Balance 1678 937 -220 Intake: IV 1338 475 Lactated Ringers 1,000 ml 1038 375 @ 125 mls/hr IV DIRECT NAKUL Rx#:[id number] ROCEPHIN/NS 1 GM/50 ML 1 50 gm In 50 ml @ 100 mls/hr IV Q12H NAKUL Rx#:[id number] UNASYN/NS 3 GM/100 ML 3 100 gm In 100 ml @ 100 mls/hr IV Q6HR NAKUL Rx#: [id number] Vancomycin Vial 1,250 mg 250 In NaCl 0.9% 250Ml 250 ml @ 166.667 mls/hr IV Q12H NAKUL Rx#:[id number] Oral 680 1080 480 Output: Drainage 40 18 Right Hip 40 18 Urine 300 600 700 Void 300 600 700 Other: Total, Intake Amount 200 100 480 Total, Output Amount 320 318 700 Voiding Method Toilet # Voids Void 1 2 # Bowel Movements 0 - Exam Cardiovascular: Present: Regular rate Lungs: Present: Clear to auscultation Abdomen: Present: normal appearance, soft Extremities: Present: normal Incision: Present: normal, dry, intact, dressed - Labs Labs: Abnormal lab results 12/31/16 Range/Units 08:10 MCH 26 L (28-32) pg RDW 16.4 H (13.2-15.2) % Plt Count 463 H (140-440) K/mm3 Seg Neuts % (Manual) 75.0 H (40.0-70.0) % Lymphocytes % (Manual) 12.0 L (13.4-35.0) % Monocytes % (Manual) 11.0 H (0.0-7.3) % Monocytes # (Manual) 1.1 H (0.0-0.8) K/mm3 Laboratory Tests 12/29/16 12/29/16 12/29/16 17:40 17:40 23:05 WBC 19.8 H RBC 3.84 Hgb 9.9 L Hct 31.3 MCV 81 MCH 26 L MCHC 32 RDW 16.2 H Plt Count 383 Add Manual Diff Total Counted Seg Neuts % (Manual) Band Neutrophils % Lymphocytes % (Manual) Reactive Lymphs % (Man) Monocytes % (Manual) Eosinophils % (Manual) Basophils % (Manual) Metamyelocytes % Myelocytes % Promyelocytes % Blast Cells % Nucleated RBC % Seg Neutrophils # Man Band Neutrophils # Lymphocytes # (Manual) Abs React Lymphs (Man) Monocytes # (Manual) Eosinophils # (Manual) Basophils # (Manual) Metamyelocytes # Myelocytes # Promyelocytes # Blast Cells # WBC Morphology Hypersegmented Neuts Hyposegmented Neuts Hypogranular Neuts Smudge Cells Toxic Granulation Toxic Vacuolation Dohle Bodies Pelger-Huet Anomaly Ria Rods Platelet Estimate Clumped Platelets Plt Clumps, EDTA Large Platelets Giant Platelets Platelet Satelliting Plt Morphology Comment RBC Morphology Dimorphic RBCs Polychromasia Hypochromasia Poikilocytosis Anisocytosis Microcytosis Macrocytosis Spherocytes Pappenheimer Bodies Sickle Cells Target Cells Tear Drop Cells Ovalocytes Helmet Cells Lozano-Pennington Bodies [place] Rings [place] Cells Bite Cells Crenated Cell Elliptocytes Acanthocytes (Spur) Rouleaux Hemoglobin C Crystals Schistocytes Malaria parasites Rupesh Bodies Hem Pathologist Commnt PT INR APTT Sodium 138 Potassium 3.6 Chloride 96.2 L Carbon Dioxide 28 Anion Gap 17 BUN 9 Creatinine 0.9 Estimated GFR > 60 BUN/Creatinine Ratio 10.00 Glucose 120 H Calcium 8.5 Urine Color Cindi Urine Turbidity Turbid Urine pH 5.0 Ur Specific Standard 1.026 Urine Protein >500 Urine Glucose (UA) Neg Urine Ketones Neg Urine Blood Sm Urine Nitrite Pos Urine Bilirubin Neg Urine Urobilinogen 4.0 Ur Leukocyte Esterase Mod Urine WBC (Auto) > 182.0 H Urine RBC (Auto) 95.0 U Epithel Cells (Auto) 2.0 Urine Bacteria (Auto) 2+ Urine Mucus 1+ 12/30/16 12/31/16 02:45 08:10 WBC 10.3 RBC 3.90 Hgb 10.2 Hct 31.6 MCV 81 MCH 26 L MCHC 32 RDW 16.4 H Plt Count 463 H Add Manual Diff Complete Total Counted 100 Seg Neuts % (Manual) 75.0 H Band Neutrophils % 0 Lymphocytes % (Manual) 12.0 L Reactive Lymphs % (Man) 0 Monocytes % (Manual) 11.0 H Eosinophils % (Manual) 2.0 Basophils % (Manual) 0 Metamyelocytes % 0 Myelocytes % 0 Promyelocytes % 0 Blast Cells % 0 Nucleated RBC % Not Reportable Seg Neutrophils # Man 7.7 Band Neutrophils # 0.0 Lymphocytes # (Manual) 1.2 Abs React Lymphs (Man) 0.0 Monocytes # (Manual) 1.1 H Eosinophils # (Manual) 0.2 Basophils # (Manual) 0.0 Metamyelocytes # 0.0 Myelocytes # 0.0 Promyelocytes # 0.0 Blast Cells # 0.0 WBC Morphology Not Reportable Hypersegmented Neuts Not Reportable Hyposegmented Neuts Not Reportable Hypogranular Neuts Not Reportable Smudge Cells Not Reportable Toxic Granulation Not Reportable Toxic Vacuolation Not Reportable Dohle Bodies Not Reportable Pelger-Huet Anomaly Not Reportable Ria Rods Not Reportable Platelet Estimate Consistent w auto Clumped Platelets Not Reportable Plt Clumps, EDTA Not Reportable Large Platelets Not Reportable Giant Platelets Not Reportable Platelet Satelliting Not Reportable Plt Morphology Comment Not Reportable RBC Morphology Not Reportable Dimorphic RBCs Not Reportable Polychromasia Not Reportable Hypochromasia Not Reportable Poikilocytosis Not Reportable Anisocytosis 1+ Microcytosis Not Reportable Macrocytosis Not Reportable Spherocytes Not Reportable Pappenheimer Bodies Not Reportable Sickle Cells Not Reportable Target Cells Not Reportable Tear Drop Cells Not Reportable Ovalocytes Not Reportable Helmet Cells Not Reportable Lozano-Pennington Bodies Not Reportable [place] Rings Not Reportable Prateek Cells Not Reportable Bite Cells Not Reportable Crenated Cell Not Reportable Elliptocytes Not Reportable Acanthocytes (Spur) Not Reportable Rouleaux Not Reportable Hemoglobin C Crystals Not Reportable Schistocytes Not Reportable Malaria parasites Not Reportable Rupesh Bodies Not Reportable Hem Pathologist Commnt No PT 14.4 INR 1.13 APTT 32.0 Sodium Potassium Chloride Carbon Dioxide Anion Gap BUN Creatinine Estimated GFR BUN/Creatinine Ratio Glucose Calcium Urine Color Urine Turbidity Urine pH Ur Specific Standard Urine Protein Urine Glucose (UA) Urine Ketones Urine Blood Urine Nitrite Urine Bilirubin Urine Urobilinogen Ur Leukocyte Esterase Urine WBC (Auto) Urine RBC (Auto) U Epithel Cells (Auto) Urine Bacteria (Auto) Urine Mucus Microbiology 12/30/16 Unknown Urine Culture - Preliminary Urine,Clean Catch NO GROWTH AFTER 24 HOURS 12/30/16 Unknown Surgical Culture - Preliminary Abdomen 12/29/16 23:25 Wound Culture - Preliminary Groin
--- NOTE | 2016-12-31 15:16 | Progress Note ---
Assessment and Plan Antibiotics: vancomycin (12/30 unasyn 3gm iv Q6H (12/30 Previous Antibiotics Ceftriaxone 1gm ivQ24H (12/30-12/30 This is a pleasant 51 year old woman with hypertension who is s/p robotic assisted total hysterectomy on 12/15/16. She is presented on 12/29/16 with vaginal drainage of foul smelling purulent material. CT scan revealed 7 .3 x 4 x4.3 loculated collection in the pelvis s/p drainage of 25 ml of purulent material with right transgluteal drain in place. 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 Objective - Constitutional Vitals: Selected Entries 12/31/16 11:47 Temperature 97.7 F Pulse Rate [ 80 From Monitor] Respiratory 14 Rate Blood Pressure 135/84 [Right Arm] Blood Pressure 101 Mean [Right Arm ] General appearance: Present: no acute distress, well-nourished - EENT Eyes: PERRL, EOM intact, no scleral icterus, no conjunctival injection ENT: hearing intact, clear oral mucosa Ears: bilateral: normal - Neck Neck: supple, normal ROM, no enlarged thyroid - Respiratory Respiratory effort: normal Respiratory: bilateral: CTA - Breasts Breasts: deferred - Cardiovascular Rhythm: regular Heart Sounds: Present: S1 & S2 Extremities: no ischemia - Gastrointestinal General gastrointestinal: Present: soft, non-tender, normal bowel sounds Rectal Exam: deferred - Genitourinary Female genitourinary: deferred - Integumentary Integumentary: clear, warm, dry - Musculoskeletal Musculoskeletal: strength equal bilaterally - Neurologic Neurologic: moves all extremities - Psychiatric Psychiatric: appropriate mood/affect, intact judgment & insight - Additional findings Additional findings: drainage in place in right buttock - Labs CBC & Chem 7: 12/31/16 08:10 12/29/16 17:40 Labs: Microbiology 12/30/16 Unknown Urine,Clean Catch Urine Culture - Preliminary NO GROWTH AFTER 24 HOURS 12/30/16 Unknown Abdomen Surgical Culture - Preliminary 12/29/16 23:25 Groin Wound Culture - Preliminary Laboratory Tests 12/29/16 12/31/16 17:40 08:10 WBC 10.3 Plt Count 463 H Creatinine 0.9 Estimated GFR > 60
[2017-01-01] MEDS: LACTATED RINGERS 1,000 ML IV SCH (03:00)
[2017-01-01] MEDS: UNASYN/NS 3 GM/100 ML 3 GM/100 ML BAG IV SCH ×4 (03:00→21:19)
[2017-01-01] MEDS: TORADOL IV SCH ×3 (04:35→23:46)
--- NOTE | 2017-01-01 08:20 | Progress Note ---
Assessment and Plan POD # 2: Pelvic abscess - improving s/p CT guided drainage - currently on Unasyn and Vancomycin UTI - improved with antibiotics Leukocytosis - resolving P: Await sensitivities Continue with IV antibiotics as per ID Appreciate ID input Subjective - Subjective Date of service: 01/01/17 Principal diagnosis: Pelvic abscess - s/p drainage - POD #2 Interval history: Patient seen and examined, stable and doing well Patient reports: appetite normal, voiding normally, pain well controlled, ambulating normally, no dizzy ambulation Objective - Vital Signs Latest vital signs: Vital Signs Temp Pulse Resp BP BP 01/01/17 00:10 98.6 F 74 16 119/80 12/31/16 21:42 18 12/31/16 15:41 98.3 F 73 16 129/69 12/31/16 11:47 97.7 F 80 14 135/84 12/31/16 09:03 97.8 F 80 16 112/67 Intake and Output 12/31/16 01/01/17 01/01/17 22:59 06:59 14:59 Intake Total 1355 750 Output Total 558 35 Balance 797 715 Intake: IV 875 750 Lactated Ringers 1,000 ml 775 500 @ 125 mls/hr IV DIRECT NAKUL Rx#:[id number] UNASYN/NS 3 GM/100 ML 3 100 gm In 100 ml @ 100 mls/hr IV Q6HR NAKUL Rx#: [id number] Vancomycin Vial 1,250 mg 250 In NaCl 0.9% 250Ml 250 ml @ 166.667 mls/hr IV Q12H NAKUL Rx#:[id number] Oral 480 Output: Drainage 8 35 Right Hip 8 35 Urine 550 Void 550 Other: Total, Intake Amount 480 Total, Output Amount 550 35 - Labs Labs: Abnormal lab results 12/31/16 Range/Units 08:10 MCH 26 L (28-32) pg RDW 16.4 H (13.2-15.2) % Plt Count 463 H (140-440) K/mm3 Seg Neuts % (Manual) 75.0 H (40.0-70.0) % Lymphocytes % (Manual) 12.0 L (13.4-35.0) % Monocytes % (Manual) 11.0 H (0.0-7.3) % Monocytes # (Manual) 1.1 H (0.0-0.8) K/mm3
[2017-01-01 08:53] LABS: Hematocrit 29.5 % (30.3-42.9); Hemoglobin 9.4 gm/dl (10.1-14.3); Mean Corpuscular HGB Conc 32 % (30-34); Mean Corpuscular Hemoglobin 26 pg (28-32); Mean Corpuscular Volume 82 fl (79-97); Platelet Count 477 K/mm3 (140-440); Red Blood Count 3.61 M/mm3 (3.65-5.03); Red Cell Distribution Width 16.6 % (13.2-15.2)
--- NOTE | 2017-01-01 10:02 | Progress Note ---
Assessment and Plan Antibiotics: vancomycin (12/30 unasyn 3gm iv Q6H (12/30 Previous Antibiotics Ceftriaxone 1gm ivQ24H (12/30-12/30 This is a pleasant 51 year old woman with hypertension who is s/p robotic assisted total hysterectomy on 12/15/16. She is presented on 12/29/16 with vaginal drainage of foul smelling purulent material. CT scan revealed 7 .3 x 4 x4.3 loculated collection in the pelvis s/p drainage of 25 ml of purulent material with right transgluteal drain in place. 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 --surgical drainage with gram positive cocci in pairs --superficial culture with gram negative rods and gram positive cocci in clusters 2) urinary tract infection, patient had burning on urination prior to coming to the hospital, urinalysis with >182 wbc 3) leukocytosis, Plan: 1) continue unasyn and vancomycin 2) await identification of organisms to deescalate antibiotics 3) follow abscess culture 4) once culture is finalized will choose oral option if possible Subjective Date of service: 01/01/17 Principal diagnosis: Pelvic abscess - s/p drainage - POD #2 Interval history: Patient is in good spirits, she is looking forward to going home Objective - Constitutional Vitals: Selected Entries 01/01/17 01/01/17 00:10 08:52 Temperature 97.6 F Pulse Rate [ 74 From Monitor] Pulse Rate [ 76 Right] Respiratory 20 Rate Blood Pressure 119/80 [Left Arm] Blood Pressure 93 Mean [Left Arm] General appearance: Present: no acute distress, well-nourished - EENT Eyes: PERRL, EOM intact ENT: hearing intact, clear oral mucosa, dentition normal, oropharyngeal erythema - Neck Neck: supple, no enlarged thyroid - Respiratory Respiratory effort: normal Respiratory: bilateral: CTA - Breasts Breasts: deferred - Cardiovascular Rhythm: regular Heart Sounds: Present: S1 & S2 Extremities: no ischemia, pulses intact - Gastrointestinal General gastrointestinal: Present: soft, non-tender, normal bowel sounds Rectal Exam: deferred - Genitourinary Female genitourinary: deferred - Integumentary Integumentary: clear, warm, dry - Musculoskeletal Musculoskeletal: strength equal bilaterally - Psychiatric Psychiatric: appropriate mood/affect, cooperative - Additional findings Additional findings: right buttock drainage in place - Labs CBC & Chem 7: 01/01/17 08:30 12/29/16 17:40 Labs: Microbiology 12/30/16 Unknown Urine,Clean Catch Urine Culture - Final 12/30/16 Unknown Abdomen Surgical Culture - Preliminary 12/29/16 23:25 Groin Wound Culture - Preliminary Laboratory Tests 12/29/16 12/30/16 01/01/17 17:40 02:45 08:30 WBC 10.0 Plt Count 477 H INR 1.13 Chloride 96.2 L Estimated GFR > 60
[2017-01-01] MEDS: PRENATAL VITAMIN PO SCH (10:49)
[2017-01-01] MEDS: VANCOMYCIN VIAL 1,250 MG in NACL 0.9% 250ML 250 ML IV SCH ×2 (10:49→22:21)
[2017-01-02] MEDS: UNASYN/NS 3 GM/100 ML 3 GM/100 ML BAG IV SCH ×2 (03:09→20:33)
[2017-01-02] MEDS: TORADOL IV SCH ×2 (08:00→20:34)
--- NOTE | 2017-01-02 09:17 | Progress Note ---
Assessment and Plan Antibiotics: vancomycin (12/30 unasyn 3gm iv Q6H (12/30 Previous Antibiotics Ceftriaxone 1gm ivQ24H (12/30-12/30 This is a pleasant 51 year old woman with hypertension who is s/p robotic assisted total hysterectomy on 12/15/16. She is presented on 12/29/16 with vaginal drainage of foul smelling purulent material. CT scan revealed 7 .3 x 4 x4.3 loculated collection in the pelvis s/p drainage of 25 ml of purulent material with right transgluteal drain in place. 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 --surgical drainage with gram positive cocci in pairs --superficial culture with gram negative rods and gram positive cocci in clusters --culture still not growing, it is possible that the oral antibiotics patient was on as outpatient might be stunting the growth --Will cover for gram negatives and anaerobes 2) urinary tract infection, patient had burning on urination prior to coming to the hospital, urinalysis with >182 wbc 3) leukocytosis, Plan: 1) no objection to discharge 2) cipro 500mg po Q12H x 14 days 3) flagyl 500mg po Q8H x 14 days 4) patient to follow up with vascular to decide when drainage should be removed Subjective Date of service: 01/02/17 Principal diagnosis: Pelvic abscess - s/p drainage - POD #2 Interval history: Patient is doing okay, she wants to go home. No new complaints Objective - Constitutional Vitals: Selected Entries 01/01/17 01/02/17 23:30 04:25 Temperature 98.1 F Pulse Rate [ 68 From Monitor] Blood Pressure 141/75 [Left Arm] Blood Pressure 120/80 [Right Arm] Blood Pressure 97 Mean [Left Arm] Blood Pressure 93 Mean [Right Arm ] General appearance: Present: no acute distress, well-nourished - EENT Eyes: PERRL, EOM intact ENT: hearing intact, clear oral mucosa, no oropharyngeal erythema Ears: bilateral: normal - Neck Neck: supple, normal ROM, no enlarged thyroid, no masses or JVD - Respiratory Respiratory: bilateral: CTA - Breasts Breasts: deferred - Cardiovascular Rhythm: regular Heart Sounds: Present: S1 & S2 Extremities: no ischemia, pulses intact, No edema - Gastrointestinal General gastrointestinal: Present: soft, non-tender Rectal Exam: deferred - Genitourinary Female genitourinary: deferred - Integumentary Integumentary: clear, warm, dry, no jaundice, no rash - Psychiatric Psychiatric: appropriate mood/affect, intact judgment & insight - Labs CBC & Chem 7: 01/01/17 08:30 12/29/16 17:40 Labs: Microbiology 12/30/16 Unknown Abdomen Surgical Culture - Preliminary 12/29/16 23:25 Groin Wound Culture - Preliminary Selected Entries 01/02/17 04:25 Respiratory 16 Rate Laboratory Tests 12/29/16 01/01/17 17:40 08:30 WBC 10.0 Plt Count 477 H Creatinine 0.9 Glucose 120 H
--- NOTE | 2017-01-02 11:53 | Discharge Summary ---
Providers - Providers Date of Admission: 12/30/16 00:19 Date of discharge: 01/02/17 Attending physician: TRAE PEREA 12/30/16 00:36 Consult to Interventional Radiology [CONS] Urgent Consulting Provider: AUGIE BARNES Reason For Exam: Pelvic abscess Place consult to:: [facility] Notified:: Answering service Phone number called:: [phone] Was contact made?: Yes If yes, spoke with:: Misael Time called:: 00:41 12/30/16 13:28 Consult to Physician [CONS] Urgent Consulting Provider: LIZET RUBIO Reason For Exam: Pelvic abscess Place consult [facility]:: [facility] Notified:: Answering service Phone number called:: [phone] Was contact made?: Yes If yes, spoke with:: Thao Time called:: 13:30 01/01/17 10:13 Consult to Case Management [CONS] Routine Services Needed at Discharge: Other Notified:: Elke Phone number called:: [phone] Was contact made?: Yes If yes, spoke with:: Elke Time called:: 10:13 Additional Physician Instructions: Home health for drain management and dressing change. Primary care physician: TRAE PEREA Hospitalization Reason for admission: other (Pelvic abscess) Procedure: other (Transgulteal drain placement) Procedure details: See IR OP note Other procedures: none complications: none Discharge diagnosis: other (Pelvic abscess s/p Robotic hyst) Hospital course: This is a pleasant 51 year old woman with hypertension who is s/p robotic assisted total hysterectomy on 12/15/16. She presented on 12/29/16 with vaginal drainage of foul smelling purulent material. CT scan revealed 7 .3 x 4 x4.3 loculated collection in the pelvis She was seen by both Interventional radiology and Infectious dse. She is s/p drainage of 25 ml of purulent material with right transgluteal drain in place. 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 --surgical drainage with gram positive cocci in pairs --superficial culture with gram negative rods and gram positive cocci in clusters --culture still not growing, it is possible that the oral antibiotics patient was on as outpatient might be stunting the growth --Will cover for gram negatives and anaerobes 2) urinary tract infection, patient had burning on urination prior to coming to the hospital, urinalysis with >182 wbc 3) leukocytosis, Antibiotics: vancomycin (12/30 unasyn 3gm iv Q6H (2 Previous Antibiotics Ceftriaxone 1gm ivQ24H (12/30-12/30 Plan: 1) Discharge home 2) cipro 500mg po Q12H x 14 days 3) flagyl 500mg po Q8H x 14 days 4) patient to follow up with vascular to decide when drainage should be removed Condition at discharge: Good Disposition: DISCHARGED TO HOME OR SELFCARE - Discharge Diagnoses (1) Abscess of pelvis Status: Acute (2) Pyuria Status: Acute Plan - Discharge Medications Prescriptions: Ciprofloxacin HCl [Ciprofloxacin TAB] 500 mg PO Q12H #28 tab Ciprofloxacin HCl [Ciprofloxacin TAB] 500 mg PO Q12HR #28 tab HYDROcodone/APAP 5-325 [Bonham 5/325] 1 each PO Q6HR PRN #20 tablet PRN Reason: Pain metroNIDAZOLE [Flagyl] 500 mg PO Q8HR #42 tablet metroNIDAZOLE [Flagyl TAB] 500 mg PO Q8HR #42 tablet - Provider Discharge Summary Activity: no sex for 6 weeks, no heavy lifting 4 weeks, no strenuous exercise Diet: routine Additional instructions: [] Smoking cessation referral if applicable(refer to patient education folder for contact #) [] Refer to [facility] Booklet Call your doctor immediately for: * Fever > 100.5 * Heavy vaginal bleeding ( >1 pad per hour) * Severe persistent headache * Shortness of breath * Reddened, hot, painful area to leg or breast * Drainage or odor from incision. * Keep incision clean and dry at all times and follow doctor's instructions regarding bathing/showering - Follow up plan Follow up: TRAE PEREA MD [Primary Care Provider] - 3-5 Days
--- NOTE | 2017-01-02 12:14 | Event Note ---
Date: 01/02/[address] Alcantar of IR, he recommends repeat CT abd pelvis now w/ contrast. He will review film and might remove drain afterwards if abscess volume decreased.
[2017-01-02] MEDS ORDERED: NACL ONE (17:18)
--- NOTE | 2017-01-02 18:37 | Cat Scan Report ---
FINAL REPORT EXAM: CT ABDOMEN PELVIS W CON HISTORY: f/u pelvic abscess TECHNIQUE: Serial axial images through the abdomen and pelvis with coronal and sagittal reconstruction. 100 milliliters Omnipaque 300 PRIORS: CT scan from 12/29/2016 FINDINGS: There is mild atelectasis in lung bases. No pleural effusion is seen. Gallbladder is surgically absent. There is a hypodense focus in the liver which is too small to definitely characterize. Pancreas, spleen and adrenal glands appear within normal limits. Kidneys appear normal. Aorta is normal in caliber. Bladder is decompressed. The wall the bladder appears thickened. There has been interval placement of a pigtail drain in the posterior aspect of the pelvis in region of the previously seen abscess. No drainable collection is identified at this time. Uterus is absent. Appendix appears normal. No gross bowel abnormality is identified. No acute osseous abnormality is identified. IMPRESSION: 1. There has been interval placement of a drain in the pelvis in the region of the previously seen abscess. No drainable collection is identified in the current exam. 2. The wall of the bladder appears thickened. This may be exaggerated by nondistention. Possibility inflammatory process is not excluded. This could be related to the adjacent inflammatory process associated with the abscess seen in the prior exam. 3. Hypodense focus is noted in the liver. This is too small to definitely characterize.
[2017-01-02] MEDS: VANCOMYCIN VIAL 1,250 MG in NACL 0.9% 250ML 250 ML IV SCH (21:35)
[2017-01-03] MEDS: UNASYN/NS 3 GM/100 ML 3 GM/100 ML BAG IV SCH ×2 (02:24→12:11)
[2017-01-03] MEDS: TORADOL IV SCH (03:18)
[2017-01-03] MEDS: VANCOMYCIN VIAL 1,250 MG in NACL 0.9% 250ML 250 ML IV SCH (10:11)
--- NOTE | 2017-01-03 14:39 | Event Note ---
Date: 01/03/17 51 year old female with pelvic abscess status post repeat CT with IV contrast of abdomen and pelvis. No residual collection. Output is minimal. Discussed with Dr. Henriquez. Removed transgluteal drain at bedside. Tolerated procedure well.
[2017-01-03 18:18] VITALS: BP 128/89
--- NOTE | 2017-01-08 12:13 | Operative Report ---
Operative Report Operative Report: see CT report for operative details
--- NOTE | 2017-01-10 15:43 | Cat Scan Report ---
EXAM: CT guided right transgluteal drain placement CLINICAL INDICATION: Pelvic abscess after hysterectomy DATE: 01/10/17 LAB SCIENTIST: AUGIE GONZALES MD MEDICATIONS: Conscious sedation using Versed and fentanyl was performed under guidance of radiologic nursing. Continuous cardiopulmonary monitoring was utilized. PROCEDURE: Following an explanation of the risks, benefits and alternatives; written informed consent was obtained. The patient was brought to the CT suite and placed in the prone position on the CT table. Cw Operator CT was performed of the pelvis. After determining the appropriate site, the skin was infiltrated with lidocaine and a finder needle was placed. Intermittent CT was performed until the desired position was identified. The 18 gauge trocar needle was inserted into the pelvic fluid collection from a right transgluteal approach. Aspiration was performed and sent to the lab for analysis. J wire was then advanced through the needle and into the collection. The needle was exchanged for multiple dilators that were used to serially dilate over the wire. An 8 Fr APD drain was advanced over the wire and metal stiffener. The metal stiffener was removed. CT scanning was performed. Wire was removed. Drain was secured with 2-[address] scanning was performed. The pigtail was secured and aspirated until no more material could be aspirated. Sterile bandage was applied. The patient tolerated the procedure well. There were no immediate postprocedural complications. FINDINGS: 1. Initial CT demonstrates a large gas and fluid pelvic fluid collection. There is a satisfactory window for CT drainage. 2. Intermittent CT demonstrates the 18 gauge needle was placed into the pelvic fluid collection from a right transgluteal approach. 3. Wire is coiled in the pelvic fluid collection. 4. Final CT documents placement of a 8 Fr drain in the pelvic fluid collection. 5. A total of 25 mL of purulent foul smelling material was aspirated through the drain and initial needle. IMPRESSION: Successful CT guided 8 Fr right transgluteal pelvic drain placement in a fluid collection/abscess.
== END 2017-01-03 15:50 | disposition home or self-care (01) | DRG 758 ==
LOC: ED 16:42 → OB 12-30 00:19
PROVIDERS: ADMIT Obstetrics & Gynecology; ATTEND Obstetrics & Gynecology
PROC: 0W9J30Z Drainage of Pelvic Cavity with Drainage Device, Percutaneous Approach (ICD-10-PCS; principal; 2016-12-30)
DX: N73.9 Female pelvic inflammatory disease, unspecified (principal); N39.0 Urinary tract infection, site not specified; D72.829 Elevated white blood cell count, unspecified; K21.9 Gastro-esophageal reflux disease without esophagitis; I11.9 Hypertensive heart disease without heart failure; Z90.49 Acquired absence of other specified parts of digestive tract; Z90.710 Acquired absence of both cervix and uterus
CPT/HCPCS: 10160; 36415; 74177; 77012; 80048; 81001; 85007; 85025; 85027; 85610; 85730; 87086; 87116; 96360; 96374; C1769; J0295; J0696; J1885; J2250; J2405; J3010; J3370; J7050; J7120; Q9967

== ENCOUNTER 2021-12-21 13:57 | Outpatient (CLI) | payer OTHER ==
--- NOTE | 2021-12-22 11:02 | Mammography Report ---
DIGITAL SCREENING MAMMOGRAM WITH TOMOSYNTHESIS WITH CAD, 12/21/2021 CLINICAL INFORMATION / INDICATION: Screening TECHNIQUE: Digital bilateral 2D and 3D mammography with tomosynthesis was obtained in the craniocaud al and mediolateral oblique projections. Computer-Aided Detection (CAD) analysis was used for interp retation of this study. COMPARISON: 06/23/2020 FINDINGS: Breast Density: There are scattered areas of fibroglandular density. No dominant mass, suspicious calcifications, or architectural distortion in the right breast. The anterior depth of the left breast at approximately 2:00, 2 cm from the nipple, an apparently new 5 mm lobular nodule is seen with a calcification. This is best visualized on tomographic images. IMPRESSION: Probably new density on the left Follow up recommendation: Left breast ultrasound and additional mammographic views if needed BI-RADS Category 0: INCOMPLETE. Needs additional imaging evaluation and/or prior mammograms for alannah bledsoe. A "normal" or negative report should not discourage follow up or biopsy of a clinically significant f inding. A written summary of these findings will be mailed to the patient. The patient will be entered into a mammography reporting system which will generate a reminder letter for the patient's next appointmen t at the appropriate interval. The [employer] recommends yearly mammograms starting at age 40 and continuing as l leena as a woman is in good health. Breast MRI is recommended for women with an approximate 20-25% or greater lifetime risk of breast cancer, including women with a strong family history of breast or ova bria cancer or who have been treated for Hodgkin's disease. Signer Name: Justin Jimenez MD Signed: 12/22/2021 10:57 AM Workstation Name: [id number]
== END 2021-12-21 13:58 | disposition home or self-care (01) ==
LOC: SPVWC 13:57
PROVIDERS: ATTEND Nurse Practitioner Obstetrics & Gynecology
DX: Z12.31 Encounter for screening mammogram for malignant neoplasm of breast (principal)
CPT/HCPCS: 77063; 77067

== ENCOUNTER 2022-02-06 13:13 | Outpatient (CLI) | payer OTHER ==
--- NOTE | 2022-02-06 14:54 | Mammography Report ---
LEFT DIGITAL DIAGNOSTIC MAMMOGRAM WITH CAD CONVENTIONAL, 02/06/2022 LEFT LIMITED BREAST ULTRASOUND CLINICAL INFORMATION / INDICATION: Patient presents as a callback from screening mammogram for furthe r evaluation of a nodular density with associated calcification in the left breast. ABNORMAL MAMMO TECHNIQUE: Digital left mammographic imaging was performed. Magnification views were obtained. Limite d ultrasound was performed. This examination was interpreted with the benefit of Computer-Aided Detec tion (CAD) analysis. COMPARISON: Prior mammogram 12/21/2021 FINDINGS: Breast Density: There are scattered areas of fibroglandular density. MAMMOGRAPHIC FINDINGS: Magnification views of the left breast reveal a persistent 4 to 5 mm nodular d ensity with associated benign appearing calcifications in the 3:00 position of the left breast, anter ior depth, located approximately 2 cm from the nipple. Targeted ultrasound was performed for further evaluation. ULTRASOUND FINDINGS: Targeted ultrasound evaluation was performed of the area of interest. Correspo nding with the nodular density seen mammographically, there is a probable cyst seen in the left breas t 4:00 position located 2 cm from the nipple measuring up to 4 x 2 x 4 mm. There is possible layering calcification seen within the cyst, suggestive of milk of calcium. Incidental note is made of a antonio gn intramammary lymph node in the 2:00 position located 2 cm from the nipple measuring up to 6 mm. IMPRESSION: 1. The previously described finding in the left breast most likely reflects a benign cyst with associ ated milk of calcium. Recommend left diagnostic mammogram with magnification views in 6 months to ens ure stability. Follow up recommendation: Short term follow up in 6 months. BI-RADS Category 3: PROBABLY BENIGN. Followup in 6 months. A "normal" or negative report should not discourage follow up or biopsy of a clinically significant f inding. A written summary of these findings will be mailed to the patient. The patient will be entered into a mammography reporting system which will generate a reminder letter for the patient's next appointmen t at the appropriate interval. According to the [employer], yearly mammograms are recommended starting at age 40 and continuing as long as a woman is in good health. Breast MRI is recommended for women with an regine roximately 20-25% or greater lifetime risk of breast cancer, including women with a strong family his tory of breast or ovarian cancer and women who have been treated for Hodgkin's disease. Signer Name: Dennise Mcguire MD Signed: 02/06/2022 2:48 PM Workstation Name: [id number]
== END 2022-02-06 13:14 | disposition home or self-care (01) ==
LOC: MAMMO 13:13
PROVIDERS: ATTEND Nurse Practitioner Obstetrics & Gynecology
DX: R92.1 Mammographic calcification found on diagnostic imaging of breast (principal)